=== PATIENT | female | born 1990 | race Caucasian/White ===

== ENCOUNTER 2019-01-17 06:13 | Inpatient (IN) | payer BC ==
[2019-01-17] MEDS ORDERED: OXYTOCIN 10 UNIT/ML 1 ML VIAL IM PRN (06:24)
[2019-01-17] MEDS ORDERED: LIDOCAINE 0.5% (PF) 5 MG/ML (50 ML SDV) SQ PRN (06:24)
[2019-01-17] MEDS ORDERED: CARBOPROST TROMETHAMINE 250 MCG/ML 1 ML AMP IM PRN (06:24)
[2019-01-17] MEDS ORDERED: TERBUTALINE 1 MG/ML VIAL SQ PRN (06:24)
[2019-01-17] MEDS ORDERED: METHYLERGONOVINE 0.2 MG/ML 1 ML AMP IM PRN (06:24)
[2019-01-17] MEDS ORDERED: OXYTOCIN 30 UNITS/500 ML NS 30 UNIT in SALINE 1 500ML.BAG IV SCH (06:30)
[2019-01-17] MEDS: LACTATED RINGERS 1,000 ML IV SCH ×5 (06:34→22:55)
[2019-01-17 06:41] LABS: Basophils % (A) 0 %; Eosinophils # (A) 0.2 k/uL (0-0.7); Eosinophils % (A) 2 %; HCT 38.1 % (34.0-46.0); Lymphocytes % (A) 18 %; MCH 33.3 pg (25.0-35.0); MCHC 34.1 g/dL (31.0-37.0); MCV 97.6 fL (80.0-100.0); Mean Platelet Volume 7.6; Monocytes # (A) 0.5 k/uL (0-1.0); Monocytes % (A) 5 %; Neutrophils # (A) 8.1 k/uL (1.3-7.7); Neutrophils % (A) 73 %; Platelet Count 207 k/uL (150-450); RDW 13.3 % (11.5-15.5); WBC 11.1 k/uL (3.8-10.6)
[2019-01-17 06:51] VITALS: BMI 44.9
[2019-01-17] MEDS ORDERED: BUTORPHANOL 1 MG/ML 1 ML VIAL IV PRN (13:47)
[2019-01-17] MEDS ORDERED: ROPIVACAINE 100 MG, fentaNYL (PF) 200 MCG in SODIUM CHLORIDE 0.9% 76 ML EPIDURAL ONE (16:47)
[2019-01-17] MEDS ORDERED: CITRIC ACID-SODIUM CITRATE 15 ML CUP PO ONE (18:56)
[2019-01-17] MEDS ORDERED: ceFAZolin 3 GM in SODIUM CHLORIDE 0.9% 100 ML IVPB ONE (18:56)
--- NOTE | 2019-01-17 19:07 | P.HPOB ---
History of Present Illness H&P Date: 01/17/19 Chief Complaint: IUP at 39 and 4/sevenths weeks, suspected LGA This is a pleasant 28-year-old 1 para 0 at 39-4/7 weeks with an estimated due date of 01/20/19 based on last menstrual period equal to ultrasound. Patient has been receiving routine care with myself since approximately 7 weeks. care has been essentially uncomplicated. Of note patient's BMI is greater than 39. On blood work she has a blood type of O+, rubella immune, RPR no nreactive, hepatitis B surface antigen negative, HIV negative, she did fail her 1 hour gestational diabetes screen but did subsequently passed her 3 hour screen. She received her T Dap vaccination on 12/06 and GBS was negative on 12/20 Review of Systems Constitutional: Denies chills, Denies fatigue, Denies fever Ears, nose, mouth and throat: Denies headache Cardiovascular: Reports leg edema Gastrointestinal: Denies nausea, Denies vomiting Genitourinary: Reports Past Medical History Past Medical History: No Reported History History of Any Multi-Drug Resistant Organisms: None Reported Past Surgical History: Orthopedic Surgery Additional Past Surgical History / Comment(s): broken leg Past Anesthesia/Blood Transfusion Reactions: No Reported Reaction Past Psychological History: No Psychological Hx Reported Smoking Status: Former smoker Past Alcohol Use History: None Reported Past Drug Use History: None Reported - Past Family History Father Family Medical History: No Reported History Medications and Allergies Home Medications Medication Instructions Recorded Confirmed Type Pnv,Calcium 72/Iron/Folic Acid 1 each PO DAILY 01/17/19 01/17/19 History [ Plus Tablet] Allergies Allergy/AdvReac Type Severity Reaction Status Date / Time No Known Allergies Allergy Verified 01/17/19 06:23 Exam Osteopathic Statement: *. No significant issues noted on an osteopathic structural exam other than those noted in the History and Physical/Consult. Vital Signs Temp Pulse Resp BP Pulse Ox 01/17/19 06:43 96.7 F L 93 18 121/71 97 Intake and Output 01/17/19 01/17/19 01/17/19 06:59 14:59 22:59 Intake Total 1999 Balance 1999 Intake: Intake, IV Titration 2000 Amount Lactated Ringers 1,000 ml 2000 @ 125 mls/hr IV .Q8H [facility] Rx#:[id number] Other: Weight 137.892 kg Targeted physical exam is performed in this date in general this a well- nourished well-developed obese female in no acute distress, breathing is noted to be nonlabored heart has regular rate and rhythm abdomen is noted to be gravid/obese on heart tones Are noted to be category 1, on vaginal exam she is noted to be 2/50/-3 amniotomy is performed and clear fluid was obtained. Results Result Diagrams: 01/17/19 06:33 Abnormal Lab Results - Last 24 Hours (Table) 01/17/19 Range/Units 06:33 WBC 11.1 H (3.8-10.6) k/uL Neutrophils # 8.1 H (1.3-7.7) k/uL Assessment and Plan (1) Term Current Visit: Yes Status: Acute Code(s): Z34.90 - ENCNTR FOR SUPRVSN OF NORMAL , UNSP, UNSP TRIMESTER SNOMED Code(s): 59095286 Plan: Patient is admitted to labor and delivery for Pitocin induction of labor. Ultrasound was performed yesterday secondary to size greater than dates estimated weight was noted to be 92nd percentile with a weight noted of 9 lbs. 3 oz. Amniotic fluid index was noted to be normal. Patient was counseled on these findings and induction of labor was recommended secondary to suspected LGA. I did discuss with the patient the ultrasound can be off by up to a pound and I felt it was best to proceed with induction. Patient agreed and induction was scheduled. Stadol and epidural are discussed with the patient and she will decide as she becomes uncomfortable. We'll monitor closely for suspected LGA, possible labor dystocia
[2019-01-17] MEDS ORDERED: IBUPROFEN IV 800 MG in SODIUM CHLORIDE 0.9% 250 ML IV ONE (19:10)
[2019-01-17] MEDS ORDERED: MORPHINE SULFATE (PF) 0.3 MG/0.3 ML SYR ONE (19:20)
[2019-01-17] MEDS ORDERED: ONDANSETRON 4 MG/2 ML VIAL ONE (19:20)
[2019-01-17] MEDS ORDERED: OXYTOCIN 10 UNIT/ML 1 ML VIAL ONE (19:20)
--- NOTE | 2019-01-17 20:07 | P.OP ---
Date of Procedure: 01/17/19 Preoperative Diagnosis: IUP at 39 and 4/sevenths weeks, arrest of first of labor Postoperative Diagnosis: Same Procedure(s) Performed: Primary low transverse section Anesthesia: epidural Surgeon: Fouzia Vergara Patient Appointment Coordinator #1: Eduardo Dumont Estimated Blood Loss (ml): 600 IV fluids (ml): 1,000 Urine output (ml): 150 Pathology: none sent Condition: stable Disposition: PACU Indications for Procedure: Arrest of labor at 4 cm, patient was admitted at 2 cm proximally 11 hours later was noted to be 4 with Formation. Findings were discussed with the patient in detail given the lack of cervical change and increasing caput, cephalopelvic disproportion is suspected Operative Findings: Normal uterus tubes and ovaries were appreciated female delivered at 1935, weight of 8 lbs. 12 oz. with Apgars of 9-9 at one and 5 minutes respectively. Description of Procedure: Patient was taken back to the operating suite where epidural anesthesia was f ound be adequate by the anesthesia department. She was then prepped and draped in normal sterile fashion in the dorsal supine position. A Pfannenstiel skin incision was made with the scalpel and carried through the underlying layer of fascia. The fascia was then incised in the midline and the incision was extended laterally. The superior aspect of the fascial incision was then grasped paul clamps, elevated and underlying rectus muscles dissected off sharply. The inferior aspect of the fascial incision was then grasped with Paul clamps, elevated and underlying rectus muscles dissected off sharply. The rectus muscles were then in the midline the peritoneum was identified and entered. The incision was then extended superiorly and inferiorly with good visualization the bladder. The bladder blade was then inserted and the vesicouterine peritoneum was identified and the bladder flap was created using sharp dissection. Hysterotomy incision was then made with the scalpel and the was then delivered and handed off to awaiting RN. The umbilical cord was doubly clamped and cut. The placenta was then delivered manually and the uterus was cleared of all clots and debris. The uterine incision was closed 0 Vicryl in running locked fashion, and additional suture was then used to obtain hemostasis. On inspection of the hysterotomy site and a small amount of bleedi ng was noted on the right-hand side. Pressure was applied in the pelvis was then copiously irrigated. The uterus was then returned to the abdomen. A small amount of bleeding was noted on the right-hand side of the uterus once again FloSeal was placed over the site and hemostasis was appreciated. The gutters were then cleared of all clots and debris. The fascia was then closed with 0 Vicryl from one lateral edge the midline and the other lateral edge the midline. Subcutaneous tissue was then irrigated hemostasis appreciated. The subcu tissue was closed with 3-0 Vicryl in a running fashion. The skin was then closed with 4-0 Vicryl in a subarticular fashion. All counts were correct 2 patient and infant tolerated procedure well.
[2019-01-17] MEDS ORDERED: ACETAMINOPHEN IV (For NPO) 1,000 MG in EMPTY BAG 1 BAG IVPB STA (20:35)
[2019-01-17] MEDS ORDERED: NALOXONE 0.4 MG/ML 1 ML VIAL IV PRN (21:57)
[2019-01-17] MEDS ORDERED: diphenhydrAMINE 50 MG/ML 1 ML VIAL IVP PRN ×2 (21:57)
[2019-01-17] MEDS ORDERED: SIMETHICONE 80 MG CHEWABLE PO PRN (21:57)
[2019-01-17] MEDS ORDERED: ONDANSETRON 4 MG/2 ML VIAL IVP PRN (21:57)
[2019-01-17] MEDS ORDERED: OXYTOCIN 20 UNITS/1000 ML NS 1,000 ML IV SCH (21:57)
[2019-01-17] MEDS ORDERED: HYDROcodone/APAP 5-325MG 1 EACH TAB PO PRN (21:57)
[2019-01-17] MEDS ORDERED: diphenhydrAMINE 25 MG CAP PO PRN (21:57)
[2019-01-17] MEDS ORDERED: METOCLOPRAMIDE 5 MG/ML 2 ML VIAL IVP PRN (21:57)
[2019-01-17] MEDS ORDERED: diphenhydrAMINE 50 MG CAP PO PRN (21:57)
[2019-01-17] MEDS ORDERED: ZOLPIDEM 5 MG TAB PO PRN (21:57)
[2019-01-17] MEDS ORDERED: ACETAMINOPHEN IV (For NPO) 1,000 MG in EMPTY BAG 1 BAG IVPB ONE (22:00)
[2019-01-17] MEDS: SENNOSIDES-DOCUSATE SODIUM 1 EACH TAB PO SCH (22:16)
[2019-01-18] MEDS: LACTATED RINGERS 1,000 ML IV SCH ×2 (06:01→21:06)
[2019-01-18 06:20] LABS: Basophils % (A) 0 %; Eosinophils # (A) 0.1 k/uL (0-0.7); Eosinophils % (A) 1 %; HCT 31.6 % (34.0-46.0); HGB 10.9 gm/dL (11.4-16.0); Lymphocytes # (A) 1.3 k/uL (1.0-4.8); Lymphocytes % (A) 11 %; MCH 34.1 pg (25.0-35.0); MCHC 34.4 g/dL (31.0-37.0); MCV 99.1 fL (80.0-100.0); Mean Platelet Volume 7.6; Monocytes # (A) 0.6 k/uL (0-1.0); Monocytes % (A) 5 %; Neutrophils # (A) 10.1 k/uL (1.3-7.7); Neutrophils % (A) 83 %; Platelet Count 155 k/uL (150-450); RBC 3.19 m/uL (3.80-5.40); RDW 13.4 % (11.5-15.5); WBC 12.2 k/uL (3.8-10.6)
--- NOTE | 2019-01-18 08:38 | P.PNOBGPC ---
Subjective - Subjective Principal diagnosis: POD 1 LTCS Interval history: Patient did well overnight. This morning she is ambulating without difficulty we are awaiting spontaneous void and Oliva was taken out this morning. She states her pain is well-controlled. She is tolerating clear liquids without nausea or vomiting. She states her pain is controlled. Patient reports: Reports appetite normal, Reports pain well controlled, Reports ambulating normally [place]: doing well, nursing well Objective - Vital Signs Latest vital signs: Vital Signs Temp Pulse Resp BP Pulse Ox 01/18/19 08:00 97.7 F 86 16 97/62 98 01/18/19 04:00 98.2 F 81 16 95/54 98 01/18/19 00:00 98.2 F 81 16 115/68 94 L 01/17/19 22:05 98.3 F 83 16 115/73 01/17/19 21:35 98.1 F 73 16 111/57 01/17/19 21:05 73 16 118/56 100 01/17/19 20:50 98.0 F 74 16 105/58 97 01/17/19 20:35 96.9 F L 83 16 115/59 95 01/17/19 20:20 96.8 F L 79 15 123/64 97 01/17/19 20:05 96.8 F L 76 15 105/52 98 Intake and Output 01/17/19 01/18/19 01/18/19 22:59 06:59 14:59 Intake Total 300 1000 Output Total 500 1000 Balance -500 -700 1000 Intake: Intake, IV Titration 1000 Amount Oxytocin 30 Units/500 ml 1000 Ns 30 unit In Saline 1 500ml.bag @ 1 MILLIUNIT/ MIN 1 mls/hr IV .Q24H [facility] Rx#:[id number] Oral 300 Output: Urine 500 1000 Uretheral (Oliva) 250 1000 Other: # Voids 0 - Exam Extremities: Present: normal, edema Abdomen: Present: normal appearance, soft Incision: Present: normal, dry, intact Uterus: Present: normal, firm - Labs Labs: Abnormal Lab Results - Last 24 Hours (Table) 01/18/19 Range/Units 05:40 WBC 12.2 H (3.8-10.6) k/uL RBC 3.19 L (3.80-5.40) m/uL Hgb 10.9 L (11.4-16.0) gm/dL Hct 31.6 L (34.0-46.0) % Neutrophils # 10.1 H (1.3-7.7) k/uL Assessment and Plan (1) Term Current Visit: Yes Status: Acute Code(s): Z34.90 - ENCNTR FOR SUPRVSN OF NORMAL , UNSP, UNSP TRIMESTER SNOMED Code(s): 88508105 (2) S/P section Current Visit: Yes Status: Acute Code(s): Z98.891 - HISTORY OF UTERINE SCAR FROM PREVIOUS SURGERY SNOMED Code(s): 318816802 Plan: Patient is doing well postoperatively will continue routine postoperative care.
[2019-01-18] MEDS: SENNOSIDES-DOCUSATE SODIUM 1 EACH TAB PO SCH ×2 (10:15→20:04)
[2019-01-18] MEDS: IBUPROFEN 600 MG TAB PO PRN ×2 (17:14→23:41)
[2019-01-18 17:27] VITALS: RESP 16
[2019-01-18] MEDS: ACETAMINOPHEN TAB 325 MG TAB PO PRN (20:03)
[2019-01-18] MEDS: PRENATAL VIT-IRON-FOLIC ACID 1 EACH CAP PO SCH (21:06)
[2019-01-19] MEDS: ACETAMINOPHEN TAB 325 MG TAB PO PRN (06:53)
[2019-01-19] MEDS: SENNOSIDES-DOCUSATE SODIUM 1 EACH TAB PO SCH (07:46)
[2019-01-19] MEDS: PRENATAL VIT-IRON-FOLIC ACID 1 EACH CAP PO SCH (07:47)
[2019-01-19] MEDS: IBUPROFEN 600 MG TAB PO PRN (07:47)
--- NOTE | 2019-01-19 08:44 | P.DS ---
Providers Date of admission: 01/17/19 06:13 Expected date of discharge: 01/19/19 Attending physician: Fouzia Vergara Primary care physician: Stated None - Discharge Diagnosis(es) (1) Term Current Visit: Yes Status: Acute (2) S/P section Current Visit: Yes Status: Acute Hospital Course: This is a pleasant 28-year-old 1 para 0 that presented to labor and delivery at 39-4/7 weeks for induction of labor secondary to suspected LGA. Patient made very minimal progress in labor being admitted at 2 cm and proximal 11 hours later being 4 cm. Patient underwent for arrest of first stage of labor. For further details on the please see operative report. Patient's postoperative course has been uneventful. She is ambulating and voiding without difficulty. She is tolerating a regular diet. She states her pain is controlled with Motrin/Tylenol. Patient delivered a viable female at 1945, weight of 8 lbs. 12 oz. with Apgars of 9 and 9 at one and 5 minutes respectively. Plan - Discharge Summary New Discharge Prescriptions: No Action Pnv,Calcium 72/Iron/Folic Acid [ Plus Tablet] 1 each PO DAILY Discharge Medication List Pnv,Calcium 72/Iron/Folic Acid [ Plus Tablet] 1 each PO DAILY 01/17/19 [History] Follow up Appointment(s)/Referral(s): Fouzia Vergara DO [Doctor of Osteopathic Medicine] - 2 Weeks Patient Instructions/Handouts: (DC), (GEN) Discharge Disposition: HOME SELF-CARE
[2019-01-19 09:32] VITALS: BP 104/65; PULSE 84; TEMP 97.7
== END 2019-01-19 12:00 | disposition home or self-care (01) | DRG 788 ==
LOC: 4FBP 06:13
PROVIDERS: ADMIT Obstetrics & Gynecology Obstetrics; ATTEND Obstetrics & Gynecology Obstetrics
PROC: 00HU33Z Insertion of Infusion Device into Spinal Canal, Percutaneous Approach (ICD-10-PCS; principal; 2019-01-17 19:45)
PROC: 10D00Z1 Extraction of Products of Conception, Low, Open Approach (ICD-10-PCS; principal; 2019-01-17 19:45)
PROC: 3E033VJ Introduction of Other Hormone into Peripheral Vein, Percutaneous Approach (ICD-10-PCS; principal; 2019-01-17 19:45)
PROC: 3E0R3NZ Introduction of Analgesics, Hypnotics, Sedatives into Spinal Canal, Percutaneous Approach (ICD-10-PCS; principal; 2019-01-17 19:45)
PROC: 10907ZC Drainage of Amniotic Fluid, Therapeutic from Products of Conception, Via Natural or Artificial Opening (ICD-10-PCS; principal; 2019-01-17 19:45)
DX: O62.0 Primary inadequate contractions (principal); Z37.0 Single live birth; Z3A.39 39 weeks gestation of pregnancy; Z87.891 Personal history of nicotine dependence; O33.9 Maternal care for disproportion, unspecified
CPT/HCPCS: 85025; 86850; 86900; 86901

== ENCOUNTER 2022-12-05 20:54 | Outpatient (CLI) | payer BC ==
[2022-12-05 21:44] VITALS: BP 112/75; PULSE 87; RESP 16; TEMP 97.8
--- NOTE | 2023-01-26 17:53 | P.MSEPDOC ---
Presenting Problems - Arrival Data Date of Arrival on Unit: 12/05/22 Time of Arrival on Unit: 20:54 Mode of Transport: Ambulatory - Complaint OB-Reason for Admission/Chief Complaint: Decreased Movement Medical History - Information : 2 Para: 1 Term: 1 : 0 Abortions: Spontaneous or Elective: 0 Number of Living Children: 1 - Gestational Age Gestational Age by MARGARITA (wks/days): 34 Weeks and 6 Days Review of Systems - Review of Systems Constitutional: No problems Breast: No problems ENT: No problems Cardiovascular: No problems Respiratory: No problems Gastrointestinal: No problems Genitourinary: No problems Musculoskeletal: No problems Neurological: No problems Skin: No problems Vital Signs - Temperature Temperature: 97.8 F Temperature Source: Temporal Artery Scan - Pulse Pulse Oximetery Pulse Rate: 87 Pulse Assessment Method: Pulse Oximetry - Respirations Respiratory Rate: 16 Oxygen Delivery Method: Room Air O2 Sat by Pulse Oximetry: 97 - Blood Pressure Right Arm Blood Pressure: 112/75 Blood Pressure Mean: 87 Blood Pressure Source: Automatic Cuff Medical Screen Scoring - Assessment - Baby A Baseline FHR: 125 Heart Rate - NICHD Category: Category I (Normal) NST: Reactive Physician Notification - Physician Notified Physician Notified Date: 12/05/22 Physician Notified Time: 21:25 Physician: Dr. Vergara New Order Received: Yes - Notification Comment Comment: Dr. Vergara called, reported on maternal status, c/o decreased movement,. CAT 1 FHT, no contx per toco or per pt, audible movmement noted, reactive NST. Orders to discharge home, follow up as scheduled. Maternal Triage Index - Maternal Triage Index Presenting for scheduled procedure w/no complaint: No - Stat/Priority 1 Stat Priority 1: No - Urgent/Priority 2 Urgent Priority 2: No - Prompt/Priority 3 Prompt Priority 3: No - Non-Urgent/Priority 4 Non-Urgent Priority 4: Yes Criteria Met for Priority 4: Pt presents to triage with C/O decreased move ment. Pt states that she has. had some movement but much less than normal. States that she has tried drinking. ice water and laying down to try to increase movement but this has not worked. States. that last known movement was around 1900 today Disposition - Disposition OB Disposition: Discharge to home Discharge Date: 12/05/22 Discharge Time: 21:30 I agree with the RN Medical Screening Exam: Yes Case reviewed; plan agreed upon as documented in EMR&OBIX.: Yes Diagnosis: DECREASED MOVEMENTS, THIRD TRIMESTER, FETUS 1
== END 2022-12-05 21:30 | disposition home or self-care (01) ==
LOC: FBPOP 20:54
PROVIDERS: ATTEND Obstetrics & Gynecology Obstetrics
DX: O36.8131 Decreased fetal movements, third trimester, fetus 1 (principal); Z3A.34 34 weeks gestation of pregnancy; Z87.891 Personal history of nicotine dependence
CPT/HCPCS: 59025; 99213

== ENCOUNTER 2023-01-03 10:14 | Inpatient (IN) | payer BC ==
[2023-01-03] MEDS ORDERED: OXYTOCIN 10 UNIT/ML 1 ML VIAL IM PRN (10:49)
[2023-01-03] MEDS ORDERED: miSOPROStoL 200 MCG TAB PO PRN (10:49)
[2023-01-03] MEDS ORDERED: CARBOPROST TROMETHAMINE 250 MCG/ML 1 ML AMP IM PRN (10:49)
[2023-01-03] MEDS ORDERED: CITRIC ACID-SODIUM CITRATE 15 ML CUP PO ONE (10:49)
[2023-01-03] MEDS ORDERED: ceFAZolin 3 GM in SODIUM CHLORIDE 0.9% 100 ML IVPB ONE (10:49)
[2023-01-03] MEDS ORDERED: TRANEXAMIC 1,000 MG/100ML-NACL 1,000 MG in EMPTY BAG 1 BAG IV PRN (10:49)
[2023-01-03] MEDS ORDERED: METHYLERGONOVINE 0.2 MG/ML 1 ML AMP IM PRN (10:49)
[2023-01-03 11:53] LABS: Basophils % (A) 0 %; Eosinophils # (A) 0.1 k/uL (0-0.7); Eosinophils % (A) 1 %; HCT 34.4 % (34.0-46.0); HGB 12.2 gm/dL (11.4-16.0); Lymphocytes # (A) 1.6 k/uL (1.0-4.8); Lymphocytes % (A) 18 %; MCH 34.8 pg (25.0-35.0); MCHC 35.4 g/dL (31.0-37.0); MCV 98.2 fL (80.0-100.0); Mean Platelet Volume 9.3; Monocytes # (A) 0.5 k/uL (0-1.0); Monocytes % (A) 5 %; Neutrophils # (A) 6.6 k/uL (1.3-7.7); Neutrophils % (A) 74 %; Platelet Count 166 k/uL (150-450); WBC 8.9 k/uL (3.8-10.6)
[2023-01-03] MEDS ORDERED: NALBUPHINE 10 MG/ML (10 ML MDV) ONE (11:58)
[2023-01-03] MEDS ORDERED: ONDANSETRON 4 MG/2 ML VIAL ONE (11:58)
[2023-01-03] MEDS ORDERED: MORPHINE SULFATE (PF) 0.3 MG/0.3 ML SYR ONE (11:58)
[2023-01-03] MEDS ORDERED: OXYTOCIN 30 UNITS/500 ML NS BAG IV ONE (11:58)
[2023-01-03] MEDS ORDERED: PHENYLEPHRINE 10 MG/ML VIAL ONE (11:58)
[2023-01-03] MEDS ORDERED: NALOXONE 0.4 MG/ML 1 ML VIAL IV PRN ×2 (12:45→12:57)
[2023-01-03] MEDS ORDERED: HYDROmorphone 0.5 MG/0.5 ML SYRINGE IVP PRN (12:45)
[2023-01-03] MEDS ORDERED: ONDANSETRON 4 MG/2 ML VIAL IVP PRN ×2 (12:45→12:57)
[2023-01-03] MEDS ORDERED: NALBUPHINE 10 MG/ML (10 ML MDV) IV PRN (12:45)
--- NOTE | 2023-01-03 12:56 | P.OP ---
Date of Procedure: 01/03/23 Preoperative Diagnosis: IUP at 39-0/7 weeks, history of 1, desires repeat Postoperative Diagnosis: Same Procedure(s) Performed: Repeat section Anesthesia: spinal Surgeon: Fouzia Vergara Manager [employer] Strategy #1: Alla Donis Estimated Blood Loss (ml): 480 IV fluids (ml): 700 Urine output (ml): 25 Pathology: none sent Condition: stable Disposition: observation Indications for Procedure: History of 1, desires repeat Operative Findings: Normal uterus tubes and ovaries were appreciated, viable male infant delivered at 1221, weight of 10 lbs. 0 oz., Apgars of 7 and 9 at one and 5 minutes respectively Description of Procedure: The patient was prepped and draped in the usual fashion after spinal anesthesia was administered by the anesthesia department. A Pfannenstiel incision was made and extended of the abdominal cavity without difficulty. The bladder peritoneum was elevated and incised and reflected distally. A 2 cm incision was made in the transverse plane of the lower uterine segment to enter the uterus at which time clear fluid was noted. The incision was extended in both directions using the bandage scissors. The head was encountered within the field and delivered up and through the incision where the nose and mouth were thoroughly suctioned. Remainder of the infant was delivered onto the surgical field where the cord was doubly clamped, cut, and the was passed for resuscitative measures with weight and Apgars as noted above. The placenta was delivered manually, intact, and was grossly normal with a grossly normal three-vessel cord. The uterus was exteriorized and the interior cavity of the uterus swept of any remaining placental and membranous fragments with a laparotomy sponge. The margins of the incision were grasped with Allis clamps and the incision closed in 2 layers. First layer was a running locking layer of 0 from margin to margin followed by a second layer of imbricating 0 Vicryl from margin to margin. Any small points of bleeding were then made hemostatic with the Bovie. Once hemostasis was achieved, the posterior cul-de-sac was suctioned with a gua rd and the uterine and ovarian findings are as noted above. The uterus was replaced within the abdominal cavity and the gutters swept of any remaining blood fluid or clot. The incision was again reexamined and hemostasis was noted to be excellent. Any small point of bleeding were made hemostatic with the Bovie. Once hemostasis was achieved the parietal peritoneum was loosely reapproximated. The layer of muscles were examined and made hemostatic with the Bovie. Attention was then turned to the fascia which was closed with 2 running stitches of 0 Vicryl proceeding from the lateral margins to the midpoint. The subcutaneous tissues were irrigated, made hemostatic with the Bovie, and reapproximated with a running stitch of 30 Vicryl. The skin was reapproximated with 4-0 Vicryl. Estimated blood loss for the case was approximately 480 mL. All sponge instrument and needle counts are correct. There were no complications. The patient tolerated the procedure well and proceeded to the recovery room in stable condition. Both mother and are resting comfortably in recovery.
[2023-01-03] MEDS ORDERED: diphenhydrAMINE 50 MG CAP PO PRN (12:57)
[2023-01-03] MEDS ORDERED: SIMETHICONE 80 MG CHEWABLE PO PRN (12:57)
[2023-01-03] MEDS ORDERED: diphenhydrAMINE 50 MG/ML 1 ML VIAL IVP PRN ×2 (12:57)
[2023-01-03] MEDS ORDERED: ZOLPIDEM 5 MG TAB PO PRN (12:57)
[2023-01-03] MEDS ORDERED: METOCLOPRAMIDE 5 MG/ML 2 ML VIAL IVP PRN (12:57)
[2023-01-03] MEDS ORDERED: diphenhydrAMINE 25 MG CAP PO PRN (12:57)
--- NOTE | 2023-01-03 12:57 | P.HPOB ---
History of Present Illness H&P Date: 01/03/23 Chief Complaint: IUP at 39-0/7 weeks, history of 1 desires repeat This is a 32-year-old 2 para 1 at 39 weeks of gestation that presents for scheduled repeat section. Patient has been receiving routine care which has been essentially unc omplicated. Patient notes good movement, denies vaginal bleeding or loss of fluid. On bloodwork this patient type of O+, rubella status immune, hepatitis B surface antigen negative, HIV negative, RPR is nonreactive, group beta strep culture was positive. Review of Systems Constitutional: Denies chills, Denies fatigue, Denies fever Ears, nose, mouth and throat: Denies headache Cardiovascular: Reports leg edema Respiratory: Denies dyspnea Gastrointestinal: Denies nausea, Denies vomiting Genitourinary: Reports Past Medical History Past Medical History: No Reported History History of Any Multi-Drug Resistant Organisms: None Reported Past Surgical History: Section, Orthopedic Surgery Additional Past Surgical History / Comment(s): broken leg Past Anesthesia/Blood Transfusion Reactions: No Reported Reaction Past Psychological History: No Psychological Hx Reported Smoking Status: Former smoker Past Alcohol Use History: None Reported Additional Past Alcohol Use History / Comment(s): quit 2021 early in year Past Drug Use History: None Reported - Past Family History Father Family Medical History: No Reported History Medications and Allergies Home Medications Medication Instructions Recorded Confirmed Type Vit No.180/Iron/Folic 1 each PO DAILY 01/17/19 01/03/23 History [ Plus Tablet] Allergies Allergy/AdvReac Type Severity Reaction Status Date / Time No Known Allergies Allergy Verified 01/03/23 10:51 Exam Osteopathic Statement: *. No significant issues noted on an osteopathic structural exam other than those noted in the History and Physical/Consult. 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 Cervical exam is deferred. Results Result Diagrams: 01/03/23 10:40 Assessment and Plan (1) H/O section Current Visit: Yes Status: Acute Code(s): Z98.891 - HISTORY OF UTERINE SCAR FROM PREVIOUS SURGERY SNOMED Code(s): 174927938 (2) Term Current Visit: No Status: Acute Code(s): Z34.90 - ENCNTR FOR SUPRVSN OF NORMAL , UNSP, UNSP TRIMESTER SNOMED Code(s): 77097758 Plan: 32-year-old at 39 weeks of gestation presents for repeat section. Patient is counseled on procedure and all questions are answered. Risser reviewed including but not limited to infection, bleeding, damage to bladder, bowel, ureteric or injury. Patient states understanding and wishes to proceed.
[2023-01-03] MEDS ORDERED: OXYTOCIN 30 UNITS/500 ML NS 30 UNIT in SALINE 1 500ML.BAG IV SCH (13:00)
[2023-01-03] MEDS: LACTATED RINGERS 1,000 ML IV SCH ×2 (16:30→23:37)
[2023-01-03] MEDS: ACETAMINOPHEN IV (For NPO) 1,000 MG in EMPTY BAG 1 BAG IVPB SCH ×2 (16:30→23:43)
[2023-01-03] MEDS: ACETAMINOPHEN TAB 500 MG TAB PO SCH (16:30)
[2023-01-03] MEDS: IBUPROFEN 600 MG TAB PO SCH (20:14)
[2023-01-03] MEDS: IBUPROFEN IV 800 MG in SODIUM CHLORIDE 0.9% 250 ML IV SCH (20:18)
[2023-01-03] MEDS: SENNOSIDES-DOCUSATE SODIUM 1 EACH TAB PO SCH (20:18)
[2023-01-03 22:10] VITALS: RESP 16
[2023-01-04] MEDS: ACETAMINOPHEN TAB 500 MG TAB PO SCH ×4 (00:31→20:47)
[2023-01-04] MEDS: IBUPROFEN IV 800 MG in SODIUM CHLORIDE 0.9% 250 ML IV SCH (03:27)
[2023-01-04] MEDS: IBUPROFEN 600 MG TAB PO SCH ×3 (05:02→18:01)
[2023-01-04] MEDS: LACTATED RINGERS 1,000 ML IV SCH ×2 (05:08→14:42)
[2023-01-04] MEDS: SENNOSIDES-DOCUSATE SODIUM 1 EACH TAB PO SCH ×2 (07:44→20:47)
--- NOTE | 2023-01-04 07:44 | P.PN ---
Progress Note - Text Progress Note Date: 01/04/23 Postop day 1 from under spinal anesthesia with intrathecal morphine given for postop pain management. Patient is doing well. Pain is well controlled. On visual analog scale 4/10 Mild itching present No nausea or vomiting reported. No Headache or weakness and numbness in the legs. No complications from spinal anesthesia.
[2023-01-04 08:05] LABS: Basophils % (A) 0 %; Eosinophils # (A) 0.1 k/uL (0-0.7); Eosinophils % (A) 1 %; HCT 30.4 % (34.0-46.0); HGB 10.5 gm/dL (11.4-16.0); Lymphocytes # (A) 1.4 k/uL (1.0-4.8); Lymphocytes % (A) 14 %; MCH 34.4 pg (25.0-35.0); MCHC 34.5 g/dL (31.0-37.0); MCV 99.8 fL (80.0-100.0); Mean Platelet Volume 8.7; Monocytes # (A) 0.5 k/uL (0-1.0); Monocytes % (A) 5 %; Neutrophils # (A) 7.7 k/uL (1.3-7.7); Neutrophils % (A) 79 %; Platelet Count 129 k/uL (150-450); RBC 3.05 m/uL (3.80-5.40); WBC 9.7 k/uL (3.8-10.6)
--- NOTE | 2023-01-04 13:39 | P.PNOBGPC ---
Subjective - Subjective Principal diagnosis: Postop day 1, repeat section Interval history: Patient is doing well postoperatively, she is ambulating and voiding without difficulty. She is tolerating a regular diet without nausea or vomiting. States her pain is controlled. Her lochia is minimal Pain is well-controlled. Patient reports: Reports appetite normal, Reports voiding normally, Reports pain well controlled, Reports ambulating normally [place]: doing well Objective - Vital Signs Latest vital signs: Vital Signs Temp Pulse Resp BP Pulse Ox 01/04/23 09:00 16 96 01/04/23 08:00 97.9 F 76 16 90/60 96 01/04/23 07:00 16 01/04/23 04:00 97.6 F 58 L 16 107/70 98 01/04/23 00:00 97.8 F 60 16 104/64 97 01/03/23 23:00 16 01/03/23 21:00 16 01/03/23 20:00 98.1 F 71 16 112/75 97 01/03/23 19:00 16 01/03/23 17:45 96 01/03/23 17:00 17 01/03/23 16:00 97.8 F 58 L 16 97/61 96 01/03/23 15:45 16 01/03/23 14:55 97.0 F L 54 L 15 102/63 95 01/03/23 14:25 52 L 14 99/64 96 01/03/23 13:55 54 L 15 100/63 97 01/03/23 13:45 16 97 01/03/23 13:40 58 L 15 98/58 97 Intake and Output 01/03/23 01/04/23 01/04/23 22:59 06:59 14:59 Intake Total 100 Output Total 600 200 400 Balance -600 -100 -400 Intake: Oral 100 Output: Urine 600 200 400 Uretheral (Oliva) 100 Other: Voiding Method Indwelling Catheter # Voids 1 1 - Exam Extremities: Present: normal, edema Abdomen: Present: normal appearance, soft Incision: Present: normal, dry, intact Uterus: Present: normal, firm - Labs Labs: Abnormal Lab Results - Last 24 Hours (Table) 01/04/23 Range/Units 07:25 RBC 3.05 L (3.80-5.40) m/uL Hgb 10.5 L (11.4-16.0) gm/dL Hct 30.4 L (34.0-46.0) % Plt Count 129 L (150-450) k/uL Assessment and Plan (1) H/O section Current Visit: Yes Status: Acute Code(s): Z98.891 - HISTORY OF UTERINE SCAR FROM PREVIOUS SURGERY SNOMED Code(s): 821441014 (2) Term Current Visit: No Status: Acute Code(s): Z34.90 - ENCNTR FOR SUPRVSN OF NORMAL , UNSP, UNSP TRIMESTER SNOMED Code(s): 04611881 (3) S/P section Current Visit: No Status: Acute Code(s): Z98.891 - HISTORY OF UTERINE SCAR FROM PREVIOUS SURGERY SNOMED Code(s): 127087440 Plan: Patient is doing well postoperatively. We'll continue routine postoperative care and anticipate discharge home tomorrow.
[2023-01-05] MEDS: IBUPROFEN 600 MG TAB PO SCH ×3 (00:13→13:50)
[2023-01-05 00:24] VITALS: TEMP 97.7
[2023-01-05] MEDS: ACETAMINOPHEN TAB 500 MG TAB PO SCH ×3 (05:08→11:06)
[2023-01-05] MEDS: SENNOSIDES-DOCUSATE SODIUM 1 EACH TAB PO SCH (08:12)
[2023-01-05 08:24] VITALS: BP 120/82; PULSE 78
--- NOTE | 2023-01-05 13:24 | P.DS ---
Providers Date of admission: 01/03/23 10:14 Expected date of discharge: 01/05/23 Attending physician: Fouzia Vergara Primary care physician: Malina Gan - Discharge Diagnosis(es) (1) H/O section Current Visit: Yes Status: Acute (2) Term Current Visit: No Status: Acute (3) S/P section Current Visit: No Status: Acute Hospital Course: This is a 32-year-old presented to labor and delivery at 39-2/7 weeks for scheduled repeat section. Patient had been receiving routine care with myself. Been essentially complicated. No blood type of O+, group beta strep culture was positive she was not rupture at the time of admission. Patient was admitted and repeat section was completed without difficulty. For full details on the please see the operative report. Patient delivered a viable male infant at 1221, weight of 10 lbs. 0 oz. or 4545 g, Apgars of 7 and 9 at one and 5 minutes respectively. Patient's course has been uneventful. On this postoperative day #2 she is ambulating and voiding without difficulty. She is breast-feeding without difficulty. She is tolerating a regular diet without nausea or vomiting. her pain is well- controlled. She denies concerns. She is desirous of discharge home this afternoon. Plan - Discharge Summary Discharge Rx Participant: No New Discharge Prescriptions: No Action Vit No.180/Iron/Folic [ Plus Tablet] 1 each PO DAILY Discharge Medication List Vit No.180/Iron/Folic [ Plus Tablet] 1 each PO DAILY 01/17/19 [History] Follow up Appointment(s)/Referral(s): Fouzia Vergara DO [Doctor of Osteopathic Medicine] - 2 Weeks Patient Instructions/Handouts: (DC), (GEN) Activity/Diet/Wound Care/Special Instructions: No tub baths or intercourse until 6 weeks postoperatively. Patient is to call the office with routine postoperative appointment for 2 weeks postoperatively. Steri-Strips will typically falloff in 7-10 days. If they are still there at the time of her postoperative appointment they will be removed by myself. Patient is to call the office prior to her 2 week visit should she have any concerns that need to be addressed. Discharge Disposition: HOME SELF-CARE
== END 2023-01-05 15:50 | disposition home or self-care (01) | DRG 788 ==
LOC: 4FBP 10:14
PROVIDERS: ADMIT Obstetrics & Gynecology Obstetrics; ATTEND Obstetrics & Gynecology Obstetrics
PROC: 10D00Z1 Extraction of Products of Conception, Low, Open Approach (ICD-10-PCS; principal; 2023-01-03 12:00)
DX: O34.211 Maternal care for low transverse scar from previous cesarean delivery (principal); Z37.0 Single live birth; Z3A.39 39 weeks gestation of pregnancy; Z87.891 Personal history of nicotine dependence
CPT/HCPCS: 85025; 86850; 86900; 86901

== ENCOUNTER 2024-09-18 08:42 | Inpatient (IN) | payer BC ==
[2024-09-18] MEDS ORDERED: METHYLERGONOVINE 0.2 MG/ML 1 ML AMP IM PRN (10:21)
[2024-09-18] MEDS ORDERED: miSOPROStoL 200 MCG TAB PO PRN (10:21)
[2024-09-18] MEDS ORDERED: TRANEXAMIC 1,000 MG/100ML-NACL 1,000 MG in EMPTY BAG 1 BAG IV PRN (10:21)
[2024-09-18] MEDS ORDERED: CARBOPROST TROMETHAMINE 250 MCG/ML 1 ML AMP IM PRN (10:21)
[2024-09-18] MEDS ORDERED: OXYTOCIN 10 UNIT/ML 1 ML VIAL IM PRN (10:21)
[2024-09-18] MEDS: LACTATED RINGERS 1,000 ML IV ONE (10:50)
[2024-09-18] MEDS: CITRIC ACID-SODIUM CITRATE 15 ML CUP PO ONE (11:25)
[2024-09-18] MEDS: ceFAZolin 3 GM in SODIUM CHLORIDE 0.9% 100 ML IVPB ONE (11:25)
[2024-09-18 11:57] LABS: Basophils # (A) 0.03 10*3/uL (0.00-0.10); Basophils % (A) 0.3 %; Eosinophils # (A) 0.08 10*3/uL (0.04-0.35); Eosinophils % (A) 0.8 %; HCT 34.6 % (37.2-46.3); HGB 12.1 g/dL (12.0-15.0); Lymphocytes # (A) 1.42 10*3/uL (0.90-5.00); MCH 33.9 pg (27.0-32.0); MCV 96.9 fL (80.0-97.0); Mean Platelet Volume 10.9 fL (9.5-12.2); Monocytes # (A) 0.56 10*3/uL (0.20-1.00); Monocytes % (A) 5.5 %; Neutrophils # (A) 7.98 10*3/uL (1.80-7.70); Neutrophils % (A) 78.9 %; Platelet Count 163 10*3/uL (140-440); RBC 3.57 10*6/uL (4.10-5.20); RDW 12.2 % (11.5-14.5); WBC 10.12 10*3/uL (4.50-10.00)
[2024-09-18] MEDS ORDERED: ePHEDrine 50 MG/ML 1 ML VIAL ONE (12:19)
[2024-09-18] MEDS ORDERED: OXYTOCIN 10 UNIT/ML 1 ML VIAL ONE (12:19)
[2024-09-18] MEDS ORDERED: ONDANSETRON 4 MG/2 ML VIAL ONE (12:19)
[2024-09-18] MEDS ORDERED: MORPHINE SULFATE (PF) 0.3 MG/0.3 ML SYR ONE (12:19)
[2024-09-18] MEDS ORDERED: NALBUPHINE (ANES) 10 MG/ML - 1 ML AMP ONE (12:19)
[2024-09-18] MEDS ORDERED: PHENYLEPHRINE-0.9% NACL SYG 1,000 MCG/10 ML SYRINGE ONE (12:19)
--- NOTE | 2024-09-18 13:04 | P.HPOB ---
History of Present Illness H&P Date: 09/18/24 Chief Complaint: IUP at 39 0/7 weeks history of section x 2 desires repeat This is a 33-year-old G3, P2 at 39 0/7 weeks, estimated due date of 09/25 that presents to labor and delivery for scheduled repeat section. Patient has been receiving routine care which have been essentially uncomplicated. Patient notes good movement denies vaginal bleeding contractions. On blood work this patient is a blood type of O+, rubella status i mmune, hepatitis B surface engine negative, HIV negative, RPR nonreactive, group B strep culture is negative. Review of Systems Constitutional: Denies chills, Denies fatigue, Denies fever Ears, nose, mouth and throat: Denies headache Cardiovascular: Reports leg edema Respiratory: Denies dyspnea Gastrointestinal: Denies nausea, Denies vomiting Genitourinary: Reports Past Medical History Past Medical History: No Reported History History of Any Multi-Drug Resistant Organisms: None Reported Past Surgical History: Orthopedic Surgery Additional Past Surgical History / Comment(s): broken leg Past Anesthesia/Blood Transfusion Reactions: No Reported Reaction Past Psychological History: No Psychological Hx Reported Smoking Status: Vaper Past Alcohol Use History: None Reported Additional Past Alcohol Use History / Comment(s): quit 2021 early in year Past Drug Use History: None Reported - Past Family History Father Family Medical History: No Reported History Medications and Allergies Home Medications Medication Instructions Recorded Confirmed Type Vit No.180/Iron/Folic 1 each PO DAILY 01/17/19 09/18/24 History [ Plus Tablet] Allergies Allergy/AdvReac Type Severity Reaction Status Date / Time No Known Allergies Allergy Verified 01/03/23 10:51 Exam Osteopathic Statement: *. No significant issues noted on an osteopathic structural exam other than those noted in the History and Physical/Consult. Vital Signs Temp Pulse Resp BP 09/18/24 10:35 98.8 F 80 14 117/71 Intake and Output 09/17/24 09/18/24 09/18/24 22:59 06:59 14:59 Other: Weight 126.099 kg Targeted physical exam is performed today in general is well-nourished well- developed female in no acute distress, breathing is nonlabored, abdomen is gravid and appropriate for gestational age, cervical exam is deferred, heart tones are noted to be category 1. Results Result Diagrams: 09/18/24 10:50 Abnormal Lab Results - Last 24 Hours (Table) 09/18/24 Range/Units 10:50 WBC 10.12 H (4.50-10.00) 10*3/uL RBC 3.57 L (4.10-5.20) 10*6/uL Hct 34.6 L (37.2-46.3) % MCH 33.9 H (27.0-32.0) pg Immature Gran # 0.05 H (0.00-0.04) 10*3/uL Neutrophils # 7.98 H (1.80-7.70) 10*3/uL Assessment and Plan (1) H/O section Current Visit: No Status: Acute Code(s): Z98.891 - HISTORY OF UTERINE SCAR FROM PREVIOUS SURGERY SNOMED Code(s): 482469423 (2) Term Current Visit: No Status: Acute Code(s): Z34.90 - ENCNTR FOR SUPRVSN OF NORMAL , UNSP, UNSP TRIMESTER SNOMED Code(s): 79099320 Plan: 33-year-old G3, P2 at 39-0/7 weeks presents for repeat section. section is discussed and risks are reviewed. Patient states understanding and wishes proceed. Informed consent is obtained. Anesthesia into see patient.
--- NOTE | 2024-09-18 13:06 | P.OP ---
Date of Procedure: 09/18/24 Preoperative Diagnosis: IUP at 39 0/7 weeks, history of section x 2, desires repeat Postoperative Diagnosis: Same Procedure(s) Performed: Repeat section Anesthesia: spinal Surgeon: Fouzia Vergara Faculty Administrator #1: Radha Carreon Estimated Blood Loss (ml): 352 IV fluids (ml): 1,200 Urine output (ml): 200 (Clear yellow) Pathology: none sent Condition: stable Disposition: observation Indications for Procedure: History of section x 2 Operative Findings: Viable female delivered at 1236, weight of 7 pounds 12 ounces, Apgars of 9 and 9 at 1 and 5 minutes respectively. Description of Procedure: The patient was prepped and draped in the usual fashion after spinal anesthesia was administered by the anesthesia department. A Pfannenstiel incision was made and extended of the abdominal cavity without difficulty. The bladder peritoneum was elevated and incised and reflected distally. A 2 cm incision was made in the transverse plane of the lower uterine segment to enter the uterus at which time clear fluid was noted. The incision was extended in both directions using the bandage scissors. The head was encountered within the field and delivered up and through the incision where the nose and mouth were thoroughly suctioned. Remainder of the infant was delivered onto the surgical field where the cord was doubly clamped, cut, and the was passed for resuscitative measures with weight and Apgars as noted above. The placenta was delivered manually, intact, and was grossly normal with a grossly normal three-vessel cord. The uterus was exteriorized and the interior cavity of the uterus swept of any remaining placental and membranous fragments with a laparotomy sponge. The margins of the incision were grasped with Ledesma clamps and the incision closed in 2 layers. First layer was a running locking layer of 0 Vicryl from margin to margin followed by a second layer of imbricating 0 Vicryl from margin to margin. Any small points of bleeding were then made hemostatic with the Bovie. Once hemostasis was achieved, the posterior cul-de-sac was suctioned with a guard and the uterine and ovarian findings are as noted above. The uterus was replaced within the abdominal cavity and the gutters swept of any remaining blood fluid or clot. The incision was again reexamined and hemostasis was noted to be excellent. Any small point of bleeding were made hemostatic with the Bovie. Once hemostasis was achieved the parietal peritoneum was loosely reapproximated. The layer of muscles were examined and made hemostatic with the Bovie. Attention was then turned to the fascia which was closed with 0 Vicryl in a running fashion from 1 lateral edge to the other.. The subcutaneous tissues were irrigated, made hemostatic with the Bovie, and reapproximated with a running stitch of 30 Vicryl. The skin was reapproximated with 4-0 Vicryl. Estimated blood loss for the case was approximately 352 mL. All sponge instrument and needle counts are correct. There were no complications. The patient tolerated the procedure well and proceeded to the recovery room in stable condition. Both mother and are resting comfortably in recovery.
[2024-09-18] MEDS ORDERED: diphenhydrAMINE 50 MG/ML 1 ML VIAL IVP PRN ×2 (16:05)
[2024-09-18] MEDS ORDERED: ONDANSETRON 4 MG/2 ML VIAL IVP PRN (16:05)
[2024-09-18] MEDS ORDERED: SIMETHICONE 80 MG CHEWABLE PO PRN (16:05)
[2024-09-18] MEDS ORDERED: NALOXONE 0.4 MG/ML 1 ML VIAL IV PRN (16:05)
[2024-09-18] MEDS ORDERED: diphenhydrAMINE 25 MG CAP PO PRN (16:05)
[2024-09-18] MEDS ORDERED: ZOLPIDEM 5 MG TAB PO PRN (16:05)
[2024-09-18] MEDS ORDERED: METOCLOPRAMIDE 5 MG/ML 2 ML VIAL IVP PRN (16:05)
[2024-09-18] MEDS ORDERED: diphenhydrAMINE 50 MG CAP PO PRN (16:05)
[2024-09-18] MEDS: SENNOSIDES-DOCUSATE SODIUM 1 EACH TAB PO SCH (20:27)
[2024-09-18] MEDS: IBUPROFEN 800 MG TAB PO SCH (20:27)
[2024-09-18] MEDS: ACETAMINOPHEN TAB 500 MG TAB PO SCH (20:28)
[2024-09-18] MEDS: LACTATED RINGERS 1,000 ML IV SCH (20:28)
[2024-09-19 06:03] LABS: Basophils # (A) 0.03 10*3/uL (0.00-0.10); Basophils % (A) 0.3 %; Eosinophils # (A) 0.13 10*3/uL (0.04-0.35); Eosinophils % (A) 1.4 %; HCT 32.3 % (37.2-46.3); HGB 10.6 g/dL (12.0-15.0); Immature Platelet Fraction 3.3 % (1.1-6.1); Lymphocytes # (A) 1.58 10*3/uL (0.90-5.00); Lymphocytes % (A) 17.3 %; MCH 33.2 pg (27.0-32.0); MCHC 32.8 g/dL (32.0-37.0); MCV 101.3 fL (80.0-97.0); Mean Platelet Volume 10.5 fL (9.5-12.2); Monocytes # (A) 0.71 10*3/uL (0.20-1.00); Monocytes % (A) 7.8 %; Neutrophils # (A) 6.61 10*3/uL (1.80-7.70); Neutrophils % (A) 72.7 %; Platelet Count 138 10*3/uL (140-440); RBC 3.19 10*6/uL (4.10-5.20); RDW 12.3 % (11.5-14.5); WBC 9.11 10*3/uL (4.50-10.00)
--- NOTE | 2024-09-19 06:08 | P.PN ---
Progress Note - Text Progress Note Date: 09/19/24 Postoperative day 1 status post section under spinal anesthesia, and intrathecal morphine given for postoperative analgesia, patient doing well, there is no anesthesia related complications, Patient had no headache, vital signs stable , Assessment and plan= postop day 1 status post , doing well there is no anesthesia related complication.
--- NOTE | 2024-09-19 08:49 | P.PNOBGPC ---
Subjective - Subjective Principal diagnosis: Postop day 1, repeat section Interval history: Patient is doing well. She is ambulating a void without difficulty. She is tolerating a regular diet without nausea or vomiting. Lochia is minimal. Pain is well-controlled. Patient reports: Reports appetite normal, Reports voiding normally, Reports pain well controlled, Reports ambulating normally [place]: doing well Objective - Vital Signs Latest vital signs: Vital Signs Temp Pulse Resp BP Pulse Ox 09/19/24 08:00 98.0 F 68 16 107/64 98 09/19/24 01:09 0.3 F L 71 18 99/64 09/18/24 15:09 97.4 F L 74 18 104/57 98 09/18/24 14:54 78 18 104/53 98 09/18/24 14:39 97.9 F 85 18 102/51 97 09/18/24 14:18 81 18 105/57 98 09/18/24 14:09 75 18 108/59 98 09/18/24 13:41 97.6 F 90 18 112/55 97 09/18/24 13:37 97.5 F L 85 18 106/57 98 09/18/24 13:18 89 16 100/56 97 09/18/24 13:09 97.1 F L 92 16 93/54 97 09/18/24 10:35 98.8 F 80 14 117/71 Intake and Output 09/18/24 09/19/24 09/19/24 22:59 06:59 14:59 Output Total 455 850 Balance -455 -850 Output: Urine 350 850 Output, Quantitative 105 Blood Loss Other: # Voids 2 1 - Exam Extremities: Present: normal, edema Abdomen: Present: normal appearance, soft Incision: Present: normal, dry, intact Uterus: Present: normal, firm - Labs Labs: Abnormal Lab Results - Last 24 Hours (Table) 09/18/24 09/19/24 Range/Units 10:50 05:25 WBC 10.12 H (4.50-10.00) 10*3/uL RBC 3.57 L 3.19 L (4.10-5.20) 10*6/uL Hgb 10.6 L (12.0-15.0) g/dL Hct 34.6 L 32.3 L (37.2-46.3) % MCV 101.3 H (80.0-97.0) fL MCH 33.9 H 33.2 H (27.0-32.0) pg Plt Count 138 L (140-440) 10*3/uL Immature Gran # 0.05 H 0.05 H (0.00-0.04) 10*3/uL Neutrophils # 7.98 H (1.80-7.70) 10*3/uL Assessment and Plan (1) H/O section Current Visit: No Status: Acute Code(s): Z98.891 - HISTORY OF UTERINE SCAR FROM PREVIOUS SURGERY SNOMED Code(s): 869974220 (2) Term Current Visit: No Status: Acute Code(s): Z34.90 - ENCNTR FOR SUPRVSN OF NORMAL , UNSP, UNSP TRIMESTER SNOMED Code(s): 31301050 (3) S/P section Current Visit: No Status: Acute Code(s): Z98.891 - HISTORY OF UTERINE SCAR FROM PREVIOUS SURGERY SNOMED Code(s): 087175432 Plan: Patient is doing well postoperatively. Plan to continue routine postoperative care Anticipate discharge home tomorrow
[2024-09-20 08:33] VITALS: BP 104/69; PULSE 76; RESP 16; TEMP 98
--- NOTE | 2024-09-20 09:36 | P.DS ---
Providers Date of admission: 09/18/24 10:11 Expected date of discharge: 09/20/24 Attending physician: Fouzia Vergara Primary care physician: Stated None - Discharge Diagnosis(es) (1) H/O section Current Visit: No Status: Acute (2) Term Current Visit: No Status: Acute (3) S/P section Current Visit: No Status: Acute Hospital Course: 33-year-old G3 now P3 that presents to labor and delivery at 39-0/7 weeks for scheduled repeat section. For full details in this patient please see the dictated history and physical patient was admitted and taken back to the operating suite for scheduled repeat section. For full details on the please the dictated operative report. Patient delivered a viable female infant at 1236 on 09/18, weight of 7 pounds 12 ounces. For full details of the please see the dictated operative report. Patient's postoperative course has been uneventful. In this postoperative day #2 she is ambulating and voiding without difficulty. She is tolerating a regular diet without nausea or vomiting. States her pain is well-controlled. She denies concerns. She would like discharge home later today. Patient Condition at Discharge: Good Plan - Discharge Summary New Discharge Prescriptions: No Action Vit No.180/Iron/Folic [ Plus Tablet] 1 each PO DAILY Discharge Medication List Vit No.180/Iron/Folic [ Plus Tablet] 1 each PO DAILY 01/17/19 [History] Follow up Appointment(s)/Referral(s): Fouzia Vergara DO [Doctor of Osteopathic Medicine] - 10/01/24 11:15 am (Post Partam Appoinment 10/31/24 @ 10:45 AM) Patient Instructions/Handouts: (DC), (GEN) Activity/Diet/Wound Care/Special Instructions: No tub baths or intercourse until 6 weeks postoperatively. [id number] ibuprofen 600 mg or 3 tablets every 6 hours as needed for pain. Routine postoperative check in 2 weeks. Should she have any concerns prior to this appointment she is urged to call the office. Discharge Disposition: HOME SELF-CARE
== END 2024-09-20 11:33 | disposition home or self-care (01) | DRG 788 ==
LOC: 4FBP 10:11
PROVIDERS: ADMIT Obstetrics & Gynecology Obstetrics; ATTEND Obstetrics & Gynecology Obstetrics
PROC: 10D00Z1 Extraction of Products of Conception, Low, Open Approach (ICD-10-PCS; principal; 2024-09-18 12:00)
DX: O34.211 Maternal care for low transverse scar from previous cesarean delivery (principal); F17.290 Nicotine dependence, other tobacco product, uncomplicated; O99.334 Smoking (tobacco) complicating childbirth; Z3A.39 39 weeks gestation of pregnancy; Z37.0 Single live birth
CPT/HCPCS: 85025; 86850; 86900; 86901